=== PATIENT | male | born 1985 | race Caucasian/White ===

== ENCOUNTER 2019-05-02 05:09 | Emergency (ER) | payer MEDICAID ==
[2019-05-02] MEDS: LORAZEPAM 1 MG TAB PO (06:09)
[2019-05-02] MEDS: ASPIRIN 325 MG TAB PO (06:09)
[2019-05-02 06:11] LABS: ADD MAN DIFF? NO
[2019-05-02 06:20] LABS: BASOPHILS % 0.9 % (0.0-2.0); EOSINOPHILS # 0.1 10^3/ul (0.0-0.5); EOSINOPHILS % 2.4 % (0.0-7.0); HEMATOCRIT 48.7 % (42.0-52.0); HEMOGLOBIN 16.4 g/dl (14.0-18.0); LYMPHOCYTES # 1.6 10^3/ul (0.8-2.9); LYMPHOCYTES % 35.3 % (15.0-51.0); MEAN CORPUSCULAR HEMOGLOBIN 28.7 pg (29.0-33.0); MEAN CORPUSCULAR HGB CONC 33.7 g/dl (32.0-37.0); MEAN CORPUSCULAR VOLUME 85.3 fl (82.0-101.0); MEAN PLATELET VOLUME 11.7 fl (7.4-10.4); MONOCYTE # 0.3 10^3/ul (0.3-0.9); NEUTROPHIL # 2.5 10^3/ul (1.6-7.5); NEUTROPHILS % 53.5 % (39.0-77.0); PLATELET COUNT 191 10^3/UL (140-415); RED BLOOD COUNT 5.71 10^6/ul (4.70-6.10)
[2019-05-02 06:20] LABS: WHITE BLOOD COUNT 4.6 10^3/ul (4.8-10.8)
[2019-05-02 06:40] LABS: INR 1.01; PROTIME 13.4 Sec (11.9-14.9)
[2019-05-02 06:41] LABS: PARTIAL THROMBOPLASTIN TIME 28.2 Sec (23.0-35.0)
[2019-05-02 06:47] LABS: ALANINE AMINOTRANSFERASE 42 IU/L (13-69); ALBUMIN 4.5 g/dl (3.3-4.9); ALBUMIN/GLOBULIN RATIO 1.66; ALKALINE PHOSPHATASE 105 IU/L (42-121); AMYLASE 80 U/L (11-123); ANION GAP 8 (5-13); ASPARTATE AMINO TRANSFERASE 31 IU/L (15-46); BILIRUBIN,INDIRECT 0.5 mg/dl (0-1.1); BILIRUBIN,TOTAL 0.5 mg/dl (0.2-1.3); BLOOD UREA NITROGEN 20 mg/dl (7-20); CALCIUM 9.5 mg/dl (8.4-10.2); CARBON DIOXIDE 27 mmol/L (21-31); CHLORIDE 106 mmol/L (97-110); CREATININE 0.92 mg/dl (0.61-1.24); Estimated GFR > 60 mL/min (>60); GLUCOSE 109 mg/dl (70-220); LIPASE 83 U/L (23-300); POTASSIUM 4.1 mmol/L (3.5-5.1); SODIUM 141 mmol/L (135-144); TOTAL PROTEIN 7.2 g/dl (6.1-8.1)
[2019-05-02 06:57] LABS: TROPONIN-I < 0.012 ng/ml (0.000-0.120)
== END 2019-05-02 07:21 | disposition home or self-care (01) ==
LOC: FTE 07:21
DX: R07.89 Other chest pain (principal)
CPT/HCPCS: 36415; 71046; 80053; 82150; 83690; 84484; 85025; 85610; 85730; 93005; 99285-25